=== PATIENT | male | born 1995 | race Native Hawaiian/Other Pacific Islander ===

== ENCOUNTER 2021-07-11 19:36 | Emergency (ER) | payer OTHER ==
[~2021-07-11] VITALS: Ht 188 cm; Wt 90.7 kg
[2021-07-11 19:59] LABS: PLATELET COUNT 262 K/uL (142-355)
[2021-07-11 20:14] LABS: POTASSIUM 3.4 mmol/L (3.6-5.2); SODIUM 140 mmol/L (136-145)
[2021-07-12 04:15] VITALS: BP 108/75; TEMP 97.3
== END 2021-07-12 04:15 | disposition home or self-care (01) ==
LOC: ED 19:36
PROVIDERS: Emergency Medicine
DX: R55 Syncope and collapse (principal); F19.10 Other psychoactive substance abuse, uncomplicated
CPT/HCPCS: 80053; 80307; 80320; 82550; 84484; 85027; 93005; 96360; 96374; 99284; J2310